=== PATIENT | female | born 1945 | race Caucasian/White ===

== ENCOUNTER → 2017-04-19 | Outpatient (REF) | payer MEDICARE, BC | LOC: M WUC 16:07 | PROVIDERS: ATTEND Physician Assistant | DX: N39.0 Urinary tract infection, site not specified (principal) ==

== ENCOUNTER → 2017-08-26 | Outpatient (REF) | payer MEDICARE, BC ==
[2017-08-26 17:21] LABS: VITAMIN B12 LEVEL 348 PG/ML (247-911)
== END ==
LOC: M LAB REF 16:33
DX: E56.9 Vitamin deficiency, unspecified (principal)
CPT/HCPCS: 82607

== ENCOUNTER → 2018-04-06 | Outpatient (REF) | payer MEDICARE, BC | LOC: M LAB REF 10:26 | DX: R19.7 Diarrhea, unspecified (principal) | CPT/HCPCS: 87507 ==

== ENCOUNTER → 2018-09-01 | Outpatient (REF) | payer MEDICARE, BC | LOC: M LAB REF 11:52 | PROVIDERS: ATTEND Family Medicine | DX: D51.9 Vitamin B12 deficiency anemia, unspecified (principal) ==

== ENCOUNTER → 2019-01-03 | Outpatient (REF) | payer MEDICARE, BC | LOC: M LAB REF 12:56 | PROVIDERS: ATTEND Family Medicine | DX: D51.9 Vitamin B12 deficiency anemia, unspecified (principal) ==

== ENCOUNTER → 2020-03-20 | Outpatient (CLI) | payer MEDICARE, BC ==
--- NOTE | 2020-03-20 10:58 | REP ---
Clinical: Right-sided chest pain with abnormal breath sounds . Comparison: None . Technique: PA and lateral. Findings: The mediastinum and cardiac silhouette are normal. The lung kim are clear and without acute consolidation, effusion, or pneumothorax. The skeletal structures are intact and normal. Impression: 1. No acute cardiopulmonary process. Electronically Signed by Eber Mcgarry MD 03/20/2020 10:49 A
== END ==
LOC: M WUC 10:31
PROVIDERS: ATTEND Family Medicine
DX: R91.8 Other nonspecific abnormal finding of lung field (principal)

== ENCOUNTER → 2021-04-10 | Outpatient (REF) | payer MEDICARE, BC | LOC: M LAB REF 16:51 | PROVIDERS: ATTEND Family Medicine | DX: Z11.59 Encounter for screening for other viral diseases (principal) ==

== ENCOUNTER → 2022-02-18 | Outpatient (CLI) | payer MEDICARE, BC | LOC: M WUC 13:00 | PROVIDERS: ATTEND Physician Assistant | DX: M79.671 Pain in right foot (principal) ==

== ENCOUNTER 2023-08-09 13:36 | Emergency (ER) | payer MEDICARE, BC ==
[~2023-08-09] VITALS: Ht 154.9 cm; Wt 70.8 kg
[2023-08-09] MEDS ORDERED: METO1TAB87 (14:29)
[2023-08-09] MEDS ORDERED: ATOR40TA75 (14:29)
[2023-08-09] MEDS ORDERED: FLUT1BLS4 (14:29)
[2023-08-09] MEDS ORDERED: ZOLP5TAB (14:29)
[2023-08-09] MEDS ORDERED: METF-838 (14:29)
[2023-08-09] MEDS ORDERED: LEXA1TAB PO (14:29)
[2023-08-09] MEDS ORDERED: LISI40TA4 (14:29)
[2023-08-09 18:46] VITALS: BP 173/78; TEMP 97.7; O2SAT 98
== END 2023-08-09 20:15 | disposition home or self-care (01) ==
LOC: M ED 13:36
DX: S09.90XA Unspecified injury of head, initial encounter (principal); S83.92XA Sprain of unspecified site of left knee, initial encounter; W10.9XXA Fall (on) (from) unspecified stairs and steps, initial encounter; Y92.009 Unspecified place in unspecified non-institutional (private) residence as the place of occurrence of the external cause; Z88.1 Allergy status to other antibiotic agents; Z79.899 Other long term (current) drug therapy

== ENCOUNTER → 2024-01-19 | Outpatient (CLI) | payer MEDICARE ==
[~2024-01-19] MED LIST: ATOR40TA75; FLUT1BLS4; LEXA1TAB PO; LISI40TA4; METF-838; METO1TAB87; ZOLP5TAB
== END ==
LOC: M WUC 15:02
PROVIDERS: ATTEND Family Medicine
DX: M54.9 Dorsalgia, unspecified (principal)